=== PATIENT | female | born 1965 | race African-American/Black ===

== ENCOUNTER 2024-02-05 08:56 | Emergency (ER) | payer OTHER ==
[2024-02-05 09:04] VITALS: BMI 34.3
[2024-02-05 09:55] VITALS: BP 187/79; PULSE 96; RESP 16; TEMP 98
[2024-02-05] MEDS ORDERED: amLODIPine BESYLATE 2.5 MG TABLET (FP) ONE (10:07)
[2024-02-05] MEDS: amLODIPine BESYLATE 2.5 MG TABLET (FP) PO ONE (10:08)
== END 2024-02-05 10:19 | disposition home or self-care (01) ==
LOC: JERFT 08:56
DX: I10 Essential (primary) hypertension (principal); Z04.1 Encounter for examination and observation following transport accident
CPT/HCPCS: 99283-25